=== PATIENT | female | born 1975 | race Caucasian/White ===

== ENCOUNTER 2019-08-28 00:14 | Outpatient (CLI) | payer OTHER, SELFPAY ==
[2019-08-28 16:41] LABS: SARS-CoV-2 RNA PCR Negative
== END 2019-08-28 00:15 | disposition home or self-care (01) ==
LOC: ANHCOVIDDT 00:15
PROVIDERS: Visit Provider Obstetrics & Gynecology
DX: Z01.812 Encounter for preprocedural laboratory examination (principal); Z20.828 Contact with and (suspected) exposure to other viral communicable diseases
CPT/HCPCS: 87635; C9803; U0003

== ENCOUNTER 2019-08-30 02:26 | Day surgery (SDC) | payer OTHER, SELFPAY ==
[2019-08-22 08:41] VITALS: BMI 31.7
--- NOTE | 2019-08-29 15:30 | P.PNAN_ITS ---
Anes - Initial Pre Proc Eval Procedure: Operation Date: 08/30/19 09:30 Proposed Procedures p Laparoscopic Bilateral Tubal Cautery - Darwin Dodd MD Date/Time: 08/29/19 15:30 Surgeon: Darwin Dodd MD Pre Op Diagnosis: Desires Sterilization Patient Data Age: 44 Gender: F Height: 1.63 m Weight: 83.91 kg Allergies Allergy/AdvReac Type Severity Reaction Status Date / Time No Known Allergies Allergy Mild Verified 08/22/19 08:43 Home Medications Medication Instructions Recorded Confirmed Type No Home Medications 08/22/19 08/22/19 History Patient hx anesthesia problems: none Family hx anesthesia problems: none [facility] Past Medical History Medical History (Updated 08/29/19 @ 15:30 by Soulyemane Rothman MD) Obesity Anes - Eval Final PreProcedure Day of Procedure 08/29/19 15:30 Patient weight: obese Heart: regular rate and rhythm Lungs: clear to auscultation and normal air movement Airway: Mallampati scale class II Neurological: alert and oriented Last oral intake: >/= 8 hours ASA classification: II Emergent: no Anesthetic plan: proceed Anesthesia type and monitoring: general ETT Informed Consent: The patient's anesthetic plan and its attendant risks and benefits were discussed with the patient/family/POA. Questions were solicited and answers provided to the satisfaction of the patient/family/POA.
[2019-08-30] VITALS (8 sets, daily range): BP systolic 101–119; BP diastolic 64–79; PULSE 54–64; RESP 12–18; TEMP 36.6–36.9; O2SAT 97–100
[2019-08-30] MEDS: LACTATED RINGERS 1,000 ML 30 ML IV CONT (08:05)
--- NOTE | 2019-08-30 09:00 | WPDHPUPDATE1 ---
History and Physical Update Update Date/Time: 08/30/19 09:00 History and Physical has been reviewed, including an updated exam of the patient. There are NO changes in the patient's condition. Risks, benefits, and alternatives have been discussed and questions answered. Patient agrees to proceed with procedure.
--- NOTE | 2019-08-30 09:57 | SUR.OPER ---
EBL:5cc
--- NOTE | 2019-08-30 10:04 | PM.PROC ---
Procedure Note - Detailed Date of procedure: 08/30/19 Pre-op diagnosis: Desires Sterilization Post-op diagnosis: same Procedure performed: Laparoscopic bilateral tubal ligation Description of procedure: Patient was taken the operating room. She has prepped draped in the dorsal lithotomy position after induction of general anesthesia. A 5 mm abdominal incision was made in left upper quadrant of the abdomen with scalpel. A 5 mm trocars inserted the intra-abdominal cavity under direct visualization of the scope. Pneumoperitoneum was achieved. A 5 mm periumbilical incision was made using a scalpel on the abdominal scan. A 5 mm trocar was inserted the intra-abdominal cavity under visualization of the scope. The fallopian tube was grasped with the bipolar cautery in the ampullary region. It was completely desiccated in a 1.5 cm area of the fallopian tube. This was performed in identical fashion on the contralateral side. The instruments were withdrawn. The pneumoperitoneum was reduced. The trocars were removed. The skin was closed with subcuticular 4 Monocryl. This incisions were covered with Dermabond. The patient tolerated the procedure well. She was taken to recover room in stable condition. Anesthesia: GETA Surgeon: Darwin Dodd MD Estimated blood loss (mL): 10 Drains: No Packing: No Pathology: none sent Complications: No immediate complications Condition: stable Disposition: PACU Findings: Normal female pelvic anatomy.
--- NOTE | 2019-08-30 11:42 | SUR.PHASEII ---
instructions delivered. neishae called.pt without complaints.
== END 2019-08-30 12:10 | disposition home or self-care (01) ==
PROVIDERS: Visit Provider Obstetrics & Gynecology
PROC: (CPT 58671; principal; 2019-08-30 09:30)
DX: Z30.2 Encounter for sterilization (principal); E66.9 Obesity, unspecified; Z68.32 Body mass index [BMI] 32.0-32.9, adult
CPT/HCPCS: 58670; A9270; J0131; J0330; J1100; J2250; J2405; J2704; J3010; J7120

== ENCOUNTER 2020-12-25 07:53 | Outpatient (CLI) | payer OTHER, SELFPAY | END 2020-12-25 07:54 | disposition home or self-care (01) | LOC: ANHAUDIO 07:56 | PROVIDERS: Visit Provider Nurse Practitioner Family | DX: H90.11 Conductive hearing loss, unilateral, right ear, with unrestricted hearing on the contralateral side (principal) | CPT/HCPCS: 92537; 92540; 92546; 92557; 92567 ==

== ENCOUNTER 2021-02-05 06:59 | Outpatient (CLI) | payer OTHER, SELFPAY ==
--- NOTE | ~2021-02-05 | MR_ITS ---
EXAMINATION: MR IAC wo/w con DATE: 02/05/2021 08:14 INDICATION: Asymmetrical hearing loss. TECHNIQUE: Magnetic resonance imaging (MRI) of the brain, brainstem, and internal auditory canals was performed without and with 17 L MultiHance intravenous contrast. Sequences included sagittal and axi al T1-weighted FSE, axial diffusion-weighted FS EPI, axial T2*-weighted GRE, axial T2-weighted FLAIR Propeller, axial T2-weighted Propeller, small sglqk-pa-edwd coronal FIESTA, small qijrt-ec-crah coron al T1-weighted FSE, and small zkwmi-ce-yxvg axial T1-weighted SPGR. Postcontrast sequences included a xial T1-weighted FSE, small sczfa-xq-vmar coronal T1-weighted FSE, and small vqfrd-wh-odbb axial T1-w eighted SPGR. Apparent diffusion coefficient (ADC) maps were created. COMPARISON: None. FINDINGS: There are scattered areas of nonspecific increased T2-weighted signal intensity in the cere bral white matter, which is within normal limits for the patient's age. There is no intracranial hemo rrhage, acute infarction, or abnormal intracranial mass lesion. The ventricles are normal in size. Th e internal auditory canals and inner and middle ears are normal. The mastoid air cells are normal. Th e paranasal sinuses are clear. The orbits are normal. IMPRESSION: 1. Normal aging brain. Reviewed, dictated and finalized at location A. DELIVERY IMPRESSION: 1. Normal aging brain.
[2021-02-05 07:30] LABS: Estimated Glomerular Filt Rate > 60
== END 2021-02-05 07:00 | disposition home or self-care (01) ==
PROVIDERS: PCP Nurse Practitioner Family; Visit Provider Nurse Practitioner Family
DX: H91.90 Unspecified hearing loss, unspecified ear (principal)
CPT/HCPCS: 70553; A9577

== ENCOUNTER 2024-10-26 01:18 | Day surgery (SDC) | payer OTHER, SELFPAY ==
[2024-10-09 15:06] VITALS: BMI 34.0
--- OUTSIDE RECORDS SUMMARY | 2024-10-26 01:23 | XMS_ITS | Encounter Summary ---
Author Organization [facility] Address [address] [place] [address] Phone Care Team Providers Care Pattern Data Operator Name Role Phone Heather Davis MD Primary Care Provide r Encounter Details Date Type Department Care Team (Latest Contact Info) Description 08/29/2024 Results Follow-Up [facility] [address] [place] [address] Luc Mosie MD [address] [facility] [address] [place] [address] Erythrocyte sedimentation rate, CBC with auto differential, Comprehensive metabolic panel, Additional followed-up results: 3 Social History Tobacco Use Types Packs/Day Years Used Date Smoking Tobacco: Never Smokeless Tobacco: Never AUDIT-C Answer Date Recorded Q1: How often do you have a drink containing alc ohol? Monthly or less 03/12/2021 Average Number of Drinks Not on file 021 Q3: How often do you have si x or more drinks on one occasion? Never 03/12/2021 Comments No Sex and Gender Information Value Date Recorded Sex Assigned at Not on file Legal Sex Female 10:52 AM CDT Gender Identity Not on file Sexual Orientation Not on file documented as of this encounter Plan of Treatment Not on file documented as of this encounter Visit Diagnoses Not on filedocumented in this encounter Care Teams Pattern Data Operator Relationship Specialty Start Date End Date Heather Davis MD [address] [facility] [address] [place] [address] PCP - General Internal Medicine 08/28/24 documented as of this encounter
--- OUTSIDE RECORDS SUMMARY | 2024-10-26 01:23 | XMS_ITS | Encounter Summary ---
Author Organization [facility] Address [address] [place] [address] Care Team Providers Care Extension Course Coordinator Name Role Phone Unavailable Primary Care Provider Unavailabl e Reason for Visit * Diagnostic Imaging (Routine) - Closed Specialty Diagnoses / Procedures Referred By Jr rey Referred To Contact Procedures Breast Imaging Screening Outside Reference Zoila Pierson NP [address] [facility] [id number] [place] [address] Phone: tel: fax: Referral ID Status Reason Start Date Expiration Date Visits Re quested Visits Authorized [id number] Closed 09/24/2022 10/24/2023 1 1 Encounter Details Date Type Department Care Team (Late st Contact Info) Description 08/18/2016 Hospital Encounter [facility] [place] [address] Social History Tobacco Use Types Packs/Day Years [...] on file documented as of this encounter Functional Status documented as of this encounter Plan of Treatment Not on file documented as of this encounter Procedures Procedure Name Priority Date/Time Associated Diagnosis Comments BREAST IMAGING MG SCREENING OUTSIDE REFERENCE Routine 08/18/2016 12:00 AM CDT documented in this encounter Results * Breast Imaging Screening Outside Reference (08/18/2016 12:00 AM CDT) Impressions [facility] - 09/24/2022 10:15 AM CDT These images are for Reference purposes only and have not been reviewed by [facility] Radiology. There will be no report generated by a [facility] Radiologist. Narrative RAD_MAMMO[facility] - 09/24/2022 10:15 AM CDT EXAMINATION: Images For Reference Purposes Only us Zoila Pierson NP IMG MAMMO PROCEDURES Final Result [facility] documented in this encounter Visit Diagnoses Not on filedocumented in this encounter
--- OUTSIDE RECORDS SUMMARY | 2024-10-26 01:23 | XMS_ITS | Referral Summary ---
Author Organization [facility] Address [address] [place] [address] Care Team Providers Care Mechanical Technologist Name Role Phone Heather Davis MD Primary Care Provide r Encounters Date Type Department Care Team Description 09/18/2024 Orders Only [facility] [address] [place] [phone] Ramila Alvarez PA 09/15/[address] [phone] Ramila Alvarez PA 09/15/2024 8:30 AM CDT Office Visit [address] [phone] Ramila Alvarez PA Arthralgia, unspecified joint (Primary Dx); Encounter for long-term (current) use of medications; Vitamin D deficiency 09/07/2024 10:30 AM CDT - 09/07/2024 11:59 PM CDT Hospital Encounter [facility] [address] [place] [phone] Discharge Disposition: Discharge to home or self care 08/29/2024 Results Follow-Up [facility] [address] [place] [phone] Luc Moise MD Erythrocyte sedimentation rate, CBC with auto differential, Comprehensive metabolic panel, Additional followed-up results: 3 08/28/2024 10:00 AM CDT Office Visit [facility] [address] [place] [phone] Ramila Alvarez PA Arthralgia, unspecified joint (Primary Dx); Encounter for long-term (current) use of medications; Low vitamin D level from Last 3 Months Allergies No known active allergies Medications ubrogepant (Ubrelvy) 100 mg tablet Ubrelvy 100 mg tablet Take 1 PO at start of migraine, can repeat dose x1 in 2h if no relief, no more than 2 tabs per 24hour period Active hydrocortisone 2.5 % creamIndication s:Rash and other nonspecific skin eruption Mix with ketoconazole cream and apply twice daily as needed to rash on breasts, buttocks 28 g 3 3 Active pimecrolimus (ELIDEL) 1 % creamIndication s:Rash and other nonspecific skin eruption Apply twice daily as needed to rash on face. 30 g 3 3 Active valACYclovir (VALTREX) 1 gram tablet Take 1 tablet (1,000 mg total) by mouth every 12 (twelve) hours Active Victoza 2-Jones 0.6 mg/0.1 mL (18 mg/3 mL) injection Inject 0.6 mg under the skin daily Active fluocinonide (LIDEX) 0.05 % external solutionIndicat ions:Psoriasis, Intertrigo Apply topically 2 (two) times a day as needed for rash 180 mL 11 3 Active triamcinolone (KENALOG) 0.1 % creamIndication s:Psoriasis,Int ertrigo Apply topically 2 (two) times a day as needed for rash Mix with Ketoconazole 454 g 3 Active ketoconazole (NIZORAL) 2 % creamIndication s:Psoriasis,Int ertrigo Mix with triamcinolone 30 [address] (PROTONIX) 40 mg EC tablet Take 1 tablet (40 mg total) by mouth daily 90 tablet 5 026 Active meloxicam (MOBIC) 15 mg tablet Take 1 tablet (15 mg total) by mouth daily 30 tablet 1 5 026 Active ergocalciferol (VITAMIN D) 50,000 unit capsule Take 1 capsule (50,000 Units total) by mouth once a week Active Active Problems Problem Noted Date Diagnosed Date Vitamin D deficiency 09/15/2024 Assessment & Plan (09/15/2024 9:15 AM CDT): Vit d low, her pcp started her on rx vit d 50,000u po qweek. Will f/u with pcp to recheck vit d in 1 month. Arthralgia 08/25/2024 Overview (09/14/2024): US right hand/wrist (09/07/24): 1. No significant joint effusions, power doppler, erosions, or tendinopathy on US examination. 2. 2nd and 3rd PIP joints: Moderate synovial thickening. 3. 1st CMC joint: Mild spurring. Assessment & Plan (09/15/2024 9:13 AM CDT): Low cdai. Minimal hand joint swelling but bilat foot xrays showed enthesitis at achilles and plantar fascia insertion which is suspicious for an early spondyloarthropathy. She denies personal and family history of psoriasis. Recommend we start meloxicam 15 mg po every day, discussed potential se of lft elevation, worsening gerd, elevated creat. She was advised to f/u in 1 month to recheck labs and will also start her on pantoprazole 40mg every day for her hx of gerd. She was advised to let us know if she has any SE. She was informed she was minimally anemic, she states she has heavy menses usually 2-3rd day. Patient voices understanding. She was advised to take a mvit the week of her menses and will recheck labs in 1 month. She did have some mild swelling at distal achilles tendon insertion bilat. Labs 08/2024: Vit d 25 L CRP 13.9H CBC Hgb 11.5L ESR 28H Avise---RF 7.0 (neg <3.5). US right hand/wrist (09/07/24): 1.No significant joint effusions, power doppler, erosions, or tendinopathy on US examination. 2. 2nd and 3rd PIP joints: Moderate synovial thickening. 3. 1st CMC joint: Mild spurring. Assessment & Plan (08/28/2024 12:14 PM CDT): Low cdai. Minimal hand joint swelling. Also has some swelling at distal achilles tendon insertion bilat and hx of + RF. No family hx of autoimmune disease. Will check serologies, rt hand US and xrays and re-evaluate in 2 weeks. 1 h spent with pt between dr moise and myself. F/u in 2 weeks. Encounter for long-term (current) use of medicat ions 08/25/2024 Assessment & Plan (09/15/2024 8:12 AM CDT): Hx of + RF with pcp in 25. Avise panel 08/2024---+ RF 7 (neg <3.5). Assessment & Plan (08/28/2024 12:15 PM CDT): Hx of + RF with pcp in 25. Abnormal magnetic resonance imaging of head 02/26 Migraine without aura and wi thout status migrainosus, not intractable 03/12/2021 Dizziness 10/30/2020 Immunizations Immunization Administration Dates Next Due Influenza, Quadrivalent, Spl it, Preservative Free, Intramuscular 02/26/2021 Social History Tobacco Use Types Packs/Day Years Used Date Smoking Tobacco: Never Smokeless Tobacco: Never Tobacco Cessation:Counseling Given: Not Answered AUDIT-C Answer Date Recorded Q1: How often [...] on file Sexual Orientation Not on file Last Filed Vital Signs Vital Sign Reading Time Taken Comments Blood Pressure 120/86 09/15/2024 8:34 AM CDT Pulse 81 09/15/2024 8:34 AM CDT Temperature 36.6 C (97.8 F) 03/12/2021 9:15 AM PLATEN BUILDER UP Respiratory Rate - - Oxygen Saturation 99% 09/15/2024 8:34 AM CDT Inhaled Oxygen Concentration - - Weight 91.8 kg (202 lb 6.4 oz) 09/15/2024 8:34 A M CDT Height 162.6 cm (5' 4) 09/15/2024 8:34 AM CDT Body Mass Index 34.74 09/15/2024 8:34 AM CDT Plan of Treatment Not on file Medical Devices Implanted Type Area Dumbwaiter Operator Device Identifier Shelf Expiration Date Model / Serial / Lot Bard Peripheral Vascular Ultraclip Bard 17ga 10cm 2 Trigger Permanent Ultrasound [id number] - [id number] Implanted:Qty: 1 on 11/23/2022 at [facility] Left: Breast Bard Peripheral Vascular [id number] / / Procedures Procedure Name Priority Date/Time Associated Diagnosis Comments SCAN - RADIOLOGY/IMAGING 09/18/2024 9:35 AM CDT SCAN - RADIOLOGY/IMAGING 09/07/2024 10:30 AM CDT VITAMIN D 25 HYDROXY Routine 08/28/2024 12:01 PM CDT Arthralgia, unspecified joint Low vitamin D level CRP (ACUTE PHASE) Routine 08/28/2024 12: 01 PM CDT Arthralgia, unspecified joint COMPREHENSIVE METABOLIC PANEL Routine 08/28/2024 12:01 PM CDT Arthralgia, unspecified joint CBC WITH AUTO DIFFERENTIAL Routine 08/28/2024 12:01 PM CDT Arthralgia, unspecified joint ERYTHROCYTE SEDIMENTATION RATE Routine 08/28/2024 12:01 PM CDT Arthralgia, unspecified joint MISCELLANEOUS LAB TEST Routine 9:58 AM CDT Arthralgia, unspecified joint SCREENING MAMMOGRAM Routine 02/24/2017 8 :29 PM PLATEN BUILDER UP from Last 3 Months or Most Recently Relevant to Health Maintenance Results * SCAN - RADIOLOGY/IMAGING (09/18/2024 9:35 AM CDT) Anatomical Region Laterality Modality Other us Ramila Benson inanavya Result * SCAN - RADIOLOGY/IMAGING (09/07/2024 10:30 AM CDT) Anatomical Region Laterality Modality Ultrasound us Provider Scanning Final Result * (ABNORMAL) CBC with auto differential (08/28/2024 12:01 PM CDT) WBC 7.1 3.8 - 10.8 Thousand/u L [facility] RBC, POC 4.76 3.80 - 5.10 Million/uL [facility] Hgb 11.5(L) 11.7 - 15.5 g/dL [facility] Hct 38.0 35.0 - 45.0 % [facility] MCV 79.8(L) 80.0 - 100.0 fL [facility] MCH 24.2(L) 27.0 - 33.0 pg [facility] MCHC 30.3(L) 32.0 - 36.0 g/dL [facility] Comment: For adults, a slight decrease in the calculated MCHC value (in the range of 30 to 32 g/dL) is most likely not clinically significant; however, it should be interpreted with caution in correlation with other red cell parameters and the patient's clinical condition. Rdw 14.3 11.0 - 15.0 % [facility] Platelets 297 140 - 400 Thousand/u L [facility] MPV 10.4 7.5 - 12.5 fL [facility] Neutrophils, abs 4,849 1,500 - 7,800 cells/uL [facility] Lymphocytes, abs 1,654 850 - 3,900 cells/uL [facility] Monocyte abs 483 200 - 950 cells/uL [facility] Eosinophils, abs 71 15 - 500 cells/uL [facility] Basophils, abs 43 0 - 200 cells/uL [facility] Neutrophils 68.3 % [facility] Lymphocyte pct 23.3 % [facility] Monocytes 6.8 % [facility] Eosinophils 1.0 % [facility] Basophils 0.6 % [facility] Blood 08/28/2024 12:0 1 PM CDT 08/28/2024 12:02 PM CDT Luc Moise MD LAB BLOOD ORDERABLES Fin al Result Performing Organization Address City/[facility] Co de Phone Number [facility] [address] [place] [address] * (ABNORMAL) Vitamin D 25 hydroxy (08/28/2024 12:01 PM CDT) Vitamin D 25-OH 25(L) 30 - 100 ng/mL [facility] Comment: Vitamin D Status 25-OH Vitamin D: Deficiency: <20 ng/mL Insufficiency: 20 - 29 ng/mL Optimal: > or = 30 ng/mL For 25-OH Vitamin D testing on patients on D2-supplementation and patients for whom quantitation of D2 and D3 fractions is required, the QuestAssureD(TM) 25-OH VIT D, (D2,D3), LC/MS/MS is recommended: order code 69646 (patients >2yrs). See Note 1 Note 1 For additional information, please refer to http://education.Pro Stream +/faq/MCT084 (This link is being provided for informational/ educational purposes only.) Blood 08/28/2024 12:0 1 PM CDT 08/28/2024 12:02 PM CDT Luc Moise MD LAB BLOOD ORDERABLES Fin al Result Performing Organization Address [facility]/ZIP Co de Phone Number [facility] [address] [place] [address] * (ABNORMAL) Erythrocyte sedimentation rate (08/28/2024 12:01 PM CDT) Erythrocyte sedimentation rate 28(H) < OR = 20 mm/h [facility] Blood 08/28/2024 12:0 1 PM CDT 08/28/2024 12:02 PM CDT Luc Moise MD LAB BLOOD ORDERABLES Fin al Result Performing Organization Address [facility] Co de Phone Number [facility] [address] [place] [address] * (ABNORMAL) CRP (acute phase) (08/28/2024 12:01 PM CDT) C-RP 13.9(H) <8.0 mg/L [facility] Blood 08/28/2024 12:0 1 PM CDT 08/28/2024 12:02 PM CDT Luc Moise MD LAB BLOOD ORDERABLES Fin al Result Performing Organization Address [facility] de Phone Number [facility] [address] [place] [address] * Comprehensive metabolic panel (08/28/2024 12:01 PM CDT) Pathologist [facility] Glucose 92 65 - 99 mg/dL [facility] Comment: Fasting reference interval BUN 11 7 - 25 mg/dL [facility] Creatinine 0.66 0.50 - 0.99 mg/dL [facility] eGFR 108 > OR = 60 mL/min/1.7 3m2 [facility] BUN/creat ratio SEE NOTE: 6 - 22 (calc) [facility] Comment: Not Reported: BUN and Creatinine are within reference range. Sodium 137 135 - 146 mmol/L [facility] Potassium, pl 4.3 3.5 - 5.3 mmol/L [facility] Chloride 104 98 - 110 mmol/L [facility] CO2 24 20 - 32 mmol/L [facility] Calcium 9.3 8.6 - 10.2 mg/dL [facility] Protein, sr 7.5 6.1 - 8.1 g/dL [facility] Albumin 4.3 3.6 - 5.1 g/dL [facility] GLOBULIN 3.2 1.9 - 3.7 g/dL (calc) [facility] Alb/glob ratio 1.3 1.0 - 2.5 (calc) [facility] Bilirubin, total 0.4 0.2 - 1.2 mg/dL [facility] Alk phos 67 31 - 125 U/L [facility] AST 17 10 - 35 U/L [facility] ALT (SGPT) 12 6 - 29 U/L [facility] Blood 08/28/2024 12:0 1 PM CDT 08/28/2024 12:02 PM CDT Luc Moise MD LAB BLOOD ORDERABLES Fin al Result Performing Organization Address City/[facility]/ZIP Co de Phone Number [facility] [address] [place] [address] * avise with anti carp and sle monitor - Miscellaneous Test (08/28/2024 9:58 AM CDT) Miscellaneous Luc Moise MD LAB BLOOD ORDERABLES Fin al Result EXTERNAL LAB * Screening Mammogram (02/24/2017 8:29 PM PLATEN BUILDER UP) Anatomical Region Laterality Modality Breast N/A Mammography 02/24/2017 8:29 PM PLATEN BUILDER UP Narrative 02/24/2017 11:15 PM PLATEN BUILDER UP CHRIS MAC M.D. CHASE NAM M.D. FINAL REPORT The radiology attending physician has personally reviewed this study, and has reviewed and/or edited this written report and agrees with it. ACC# Date Time Exam [id number] Feb 24, 2017 14:29:00 [facility] [place] [address] Dia Mamm, inc CAD, unilat L Technologist(s): Yuridia Crandall; ; [id number] Feb 24, 2017 14:29:00 [facility] [place] [address] DigBreast Jg uni L Technologist(s): Yuridia Crandall; ; [id number] Feb 24, 2017 14:17:00 [facility] [place] [address] Axillary Breast Ultrasound R [id number] Feb 24, 2017 14:17:00 [facility] [place] [address] Breast US unilateral, ltd L EXAMINATION: 1. RIGHT AXILLARY SONOGRAM; 2. LEFT BREAST SONOGRAM; 3. UNILATERAL LEFT DIGITAL DIAGNOSTIC MAMMOGRAM INCLUDING CAD AND DIGITAL BREAST TOMOSYNTHESIS HISTORY: 42-year-old woman presents for reevaluation of a morphologically abnormal RIGHT axillary lymph node, as well as a 6 mm circumscribed hypoechoic mass at the 12 o'clock position of the LEFT breast. The patient underwent ultrasound-guided fine-needle aspiration of the RIGHT axillary lymph node on 09/17/2016 with pathology demonstrating lymphoid component, negative for metastatic carcinoma. Short-term follow-up sonogram of the LEFT breast was recommended in 3 months to confirm resolution and/or stability. COMPARISON: Prior mammograms dated 09/16/2016, 09/03/2016, and 08/18/2016, prior ultrasound 09/16/2016. TECHNIQUE: Full field digital mammographic views of BOTH breasts were performed, including computer aided detection (CAD) and digital breast tomosynthesis (DBT). Directed ultrasound evaluation of right axilla and left breast was performed. BREAST PARENCHYMAL COMPOSITION: The breasts are heterogenously dense, which may obscure small masses. SONOGRAM FINDINGS: Directed ultrasound of the RIGHT axilla was performed. There is redemonstration of a morphologically abnormal right axillary lymph node which contains a central biopsy clip from prior fine-needle aspiration. The lymph node measures 1.6 x 1.1 cm compared with 1.4 x 1.1 cm on exam of 09/16/2016, when measured similarly, and again demonstrates cortical thickening with hilar effacement. Directed ultrasound was performed of the LEFT breast at 12:00, 6 cm from the nipple, which demonstrates a stable circumscribed hypoechoic mass likely representing a cluster of microcysts measuring up to 7 mm, previously measuring up to 7 mm. MAMMOGRAM FINDINGS: Unilateral LEFT breast mammogram was performed following ultrasound guided placement of a triangular skin marker over the sonographic cluster of cysts at 12:00, 6 cm from the nipple. There is a circumscribed 6 mm low-density mass in the central left breast at 12 o'clock position on the best visualized on CC DBT slice 51/80 corresponding with the probable sonographic cluster of cysts. Approximately 3 cm medial, there is unchanged summation of dense fibroglandular tissue. IMPRESSION: 1. Unchanged probably benign hypoechoic mass in the LEFT breast at 12 o'clock favored to represent a cluster of cysts, for which short-term follow-up in 6 months is recommended 2. No significant change in size of the previously biopsied benign RIGHT axillary lymph node. Continued clinical follow-up is recommended, with further management decision based on clinical assessment. OVERALL FINAL ASSESSMENT: BI-RADS Category 3: Probably Benign. Recommend follow-up diagnostic breast imaging in 6 months of the LEFT breast. Continued clinical follow-up of the RIGHT axilla is recommended. Any further evaluation at this time, including RIGHT axillary lymph node surgical excision, should be determined by clinical assessment. Electronically signed by: Chris Mac M.D. Requested By: Tanesha Lockett MD, PHD Dictated By: CHASE NAM M.D. on Feb 24 2017 4:56P This document has been electronically signed by: CHRIS MAC M.D. on Feb 24 2017 5:13P Catarina LITTLEJOHN M.D. FINAL REPORT The radiology attending physician has personally reviewed this study, and has reviewed and/or edited this written report and agrees with it. Attending: TANESHA LOCKETT Requesting: Tanesha Lockett Requesting Fax: Attending Fax: Attending ID: [id number] Requesting ID: [id number] Report To 1 ID: [id number] Report To 1 Name: , Report To 1 FAX: NextGen Order #: Procedure Note Miscellaneous, Not In File - 02/24/2017 Catarina LITTLEJOHN M.D. FINAL REPORT The radiology attending physician has personally reviewed this study, and has reviewed and/or edited this written report and agrees with it. ACC# Date Time Exam [id number] Feb 24, 2017 14:29:00 [facility] [place] [address] Diag Mamm, inc CAD, unilat L Technologist(s): Yuridia Crandall; ; [id number] Feb 24, 2017 14:29:00 [facility] [place] [address] DigBreast Jg uni L Technologist(s): Yuridia Crandall; ; [id number] Feb 24, 2017 14:17:00 [facility] [place] [address] Axillary Breast Ultrasound R [id number] Feb 24, 2017 14:17:00 [facility] [place] [address] Breast US unilateral, ltd L EXAMINATION: 1. RIGHT AXILLARY SONOGRAM; 2. LEFT BREAST SONOGRAM; 3. UNILATERAL LEFT DIGITAL DIAGNOSTIC MAMMOGRAM INCLUDING CAD AND DIGITAL BREAST TOMOSYNTHESIS HISTORY: 42-year-old woman presents for reevaluation of a morphologically abnormal RIGHT axillary lymph node, as well as a 6 mm circumscribed hypoechoic mass at the 12 o'clock position of the LEFT breast. The patient underwent ultrasound-guided fine-needle aspiration of the RIGHT axillary lymph node on 09/17/2016 with pathology demonstrating lymphoid component, negative for metastatic carcinoma. Short-term follow-up sonogram of the LEFT breast was recommended in 3 months to confirm resolution and/or stability. COMPARISON: Prior mammograms dated 09/16/2016, 09/03/2016, and 08/18/2016, prior ultrasound 09/16/2016. TECHNIQUE: Full field digital mammographic views of BOTH breasts were performed, including computer aided detection (CAD) and digital breast tomosynthesis (DBT). Directed ultrasound evaluation of right axilla and left breast was performed. BREAST PARENCHYMAL COMPOSITION: The breasts are heterogenously dense, which may obscure small masses. SONOGRAM FINDINGS: Directed ultrasound of the RIGHT axilla was performed. There is redemonstration of a morphologically abnormal right axillary lymph node which contains a central biopsy clip from prior fine-needle aspiration. The lymph node measures 1.6 x 1.1 cm compared with 1.4 x 1.1 cm on exam of 09/16/2016, when measured similarly, and again demonstrates cortical thickening with hilar effacement. Directed ultrasound was performed of the LEFT breast at 12:00, 6 cm from the nipple, which demonstrates a stable circumscribed hypoechoic mass likely representing a cluster of microcysts measuring up to 7 mm, previously measuring up to 7 mm. MAMMOGRAM FINDINGS: Unilateral LEFT breast mammogram was performed following ultrasound guided placement of a triangular skin marker over the sonographic cluster of cysts at 12:00, 6 cm from the nipple. There is a circumscribed 6 mm low-density mass in the central left breast at 12 o'clock position on the best visualized on CC DBT slice 51/80 corresponding with the probable sonographic cluster of cysts. Approximately 3 cm medial, there is unchanged summation of dense fibroglandular tissue. IMPRESSION: 1. Unchanged probably benign hypoechoic mass in the LEFT breast at 12 o'clock favored to represent a cluster of cysts, for which short-term follow-up in 6 months is recommended 2. No significant change in size of the previously biopsied benign RIGHT axillary lymph node. Continued clinical follow-up is recommended, with further management decision based on clinical assessment. OVERALL FINAL ASSESSMENT: BI-RADS Category 3: Probably Benign. Recommend follow-up diagnostic breast imaging in 6 months of the LEFT breast. Continued clinical follow-up of the RIGHT axilla is recommended. Any further evaluation at this time, including RIGHT axillary lymph node surgical excision, should be determined by clinical assessment. Electronically signed by: Chris Mac M.D. Requested By: Tanesha Lockett MD, PHD Dictated By: CHASE NAM M.D. on Feb 24 2017 4:56P This document has been electronically signed by: CHRIS MAC M.D. on Feb 24 2017 5:13P Catarina LITTLEJOHN M.D. FINAL REPORT The radiology attending physician has personally reviewed this study, and has reviewed and/or edited this written report and agrees with it. Attending: TANESHA LOCKETT Requesting: Tanesha Lockett Requesting Fax: Attending Fax: Attending ID: [id number] Requesting ID: [id number] Report To 1 ID: [id number] Report To 1 Name: , Report To 1 FAX: NextGen Order #: Result [facility] Tanesha Lockett MD PhD IMG MAMMO PROCEDURES Final Result from Last 3 Months or Most Recently Relevant to Health Maintenance Insurance [facility] [employer] HMO/POS [employer] PPO Care Teams Mechanical Technologist Relationship Specialty Start Date End Date Heather Davis MD [address] [place] [address] PCP - General Internal Medicine 08/28/24
--- OUTSIDE RECORDS SUMMARY | 2024-10-26 01:23 | XMS_ITS | Clinical Summary ---
Author Organization [facility] Address [address] [place] [address] Care Team Providers Care Shipping Checker Name Role Phone Carlee Ruiz MD Primary Care Provider Source Comments [facility],non-owned Affiliates and Associated Physician Practices is amultiple site organization consisting of ambulatory clinics and hospital sitesin [place], [place], [place] and [place]. This disclosure is being madepursuant to the Care Everywhere program and may not contain all information available regarding this patient. Last updated 17.[facility] Active Problems Problem Noted Date Diagnosed Date Unspecified disorder of synovium and tendon, rig ht shoulder 12/27/2015 Social History Tobacco Use Types Packs/Day Years Used Date Smoking Tobacco: Never Alcohol Use Standard Drinks/Week Comments No 0 (1 standard drink = 0.6 oz pur e alcohol) Comments Unknown Sex and Gender Information Value Date Recorded Sex Assigned at Not on file Legal Sex Female 5:51 PM EDI COORDINATOR Gender Identity Not on file Sexual Orientation Not on file Last Filed Vital Signs Vital Sign Reading Time Taken Comments Blood Pressure - - Pulse - - Temperature - - Respiratory Rate - - Oxygen Saturation - - Inhaled Oxygen Concentration - - Weight 75.8 kg (167 lb) 12/27/2015 9:15 AM CDT Height 162.6 cm (5' 4) 12/27/2015 9:15 AM CDT Body Mass Index 28.67 12/27/2015 9:15 AM CDT Plan of Treatment Health Maintenance Due Date Last Done Comments COLOGUARD (AGES 45-75) - COL ON CA SCREENING 1975 COLON MONITORING 1976 COLONOSCOPY - COLON CA SCREENING 1976 CT COLONOGRAPHY - COLON CA SCREENING 1975 Colorectal Cancer Screening 1975 FIT - COLON CA SCREENING 1976 FLEX SIG - COLON CA SCREENING 1976 LIPID TESTING 1975 MAMMOGRAM 1975 HIV SCREENING 02/13/1991 HEPATITIS C SCREENING 02/09/1994 DTAP/TDAP/TD VACCINES (1 - Tdap) 02/13/1995 HEPATITIS B VACCINE (1 of 3 - 19+ 3-dose series) 02/13/1995 COVID-19 VACCINE (1 - 2023-2 5 season) 2023 DEPRESSION SCREENING 03/29/2024 INFLUENZA VACCINE (#1) 2024 ZOSTER VACCINE (1 of 2) 02/13/2026 HIB VACCINE Aged Out No longer eligi ble based on patient's age to complete this topic HPV VACCINE Aged Out No longer eligi ble based on patient's age to complete this topic MENINGOCOCCAL (Group B) VACC INE SHARED DECISION-MAKING Aged Out No longer eligibl e based on patient's age to complete this topic MENINGOCOCCAL GROUPS A/C/Y/W VACCINE Aged Out No longer eligible b ased on patient's age to complete this topic PNEUMOCOCCAL VACCINE Aged Out No long er eligible based on patient's age to complete this topic Care Teams Shipping Checker Relationship Specialty Start Date End Date Carlee Ruiz MD [address] [place] [phone] PCP - General 11/20/15
--- OUTSIDE RECORDS SUMMARY | 2024-10-26 01:23 | XMS_ITS | Clinical Summary ---
Author Organization [facility] Address [address] [place] [address] Care Team Providers Care Lead Material Handler Name Role Phone Heather Davis MD Primary Care Provide r Allergies No known active allergies Medications ubrogepant [...] for rash Mix with Ketoconazole 454 g 11 3 Active ketoconazole (NIZORAL) 2 % creamIndication s:Psoriasis,Int ertrigo Mix with triamcinolone 30 g [address] (PROTONIX) 40 mg [...] status migrainosus, not intractable 03/12/2021 Dizziness 10/30/2020 Encounters Date Type Department Care Team Description 09/18/2024 Orders Only [facility] [address] [place] [phone] Ramila Alvarez PA 09/15/2024 8:30 AM CDT Office Visit [facility] [address] [place] [phone] Ramila Alvarez PA Arthralgia, unspecified joint (Primary Dx); Encounter for long-term (current) use of medications; Vitamin D deficiency 09/15/2024 Telephone [facility] [address] [place] [phone] Ramila Alvarez PA 09/07/2024 10:30 AM CDT - 09/07/2024 11:59 PM CDT Hospital Encounter [facility] [address] [place] [phone] Discharge Disposition: Discharge to home or self care 08/29/2024 Results Follow-Up [facility] [address] [place] [phone] Luc Moise MD Erythrocyte sedimentation rate, CBC with auto differential, Comprehensive metabolic panel, Additional followed-up results: 3 08/28/2024 10:00 AM CDT Office Visit [facility] [address] [place] [phone] Ramila Alvarez PA Arthralgia, unspecified joint (Primary Dx); Encounter for long-term (current) use of medications; Low vitamin D level from Last 3 Months Immunizations Immunization Administration Dates Next Due Influenza, Quadrivalent, Spl it, Preservative Free, Intramuscular 02/26/2021 Surgical History Surgery Date Site/Laterality Comments TONSILLECTOMY WISDOM TOOTH EXTRACTION BREAST BIOPSY 11/23/2022 Left Medical History Medical History Date Comments Generalized headaches Dizziness Family History Medical History Relation Name Comments Stroke Father Migraines Mother Breast cancer Mother's Sister Colon cancer Mother's Sister Relation Name Status Comments Father Alive Mother Alive Mother's Sister Social History Tobacco Use Types Packs/Day Years [...] on file Sexual Orientation Not on file Obstetrics History Last Filed Vital Signs Vital Sign Reading Time Taken Comments Blood Pressure 120/86 09/15/2024 8:34 AM CDT Pulse 81 09/15/2024 8:34 AM CDT Temperature 36.6 C (97.8 F) 03/12/2021 9:15 AM 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 Respiratory Rate - - Oxygen Saturation 99% 09/15/2024 8:34 AM CDT Inhaled Oxygen Concentration - - Weight 91.8 kg (202 lb 6.4 oz) 09/15/2024 8:34 A M CDT Height 162.6 cm (5' 4) 09/15/2024 8:34 AM CDT Body Mass Index 34.74 09/15/2024 8:34 AM CDT Plan of Treatment Health Maintenance Due Date Last Done Comments Cervical Cancer Screening 1975 Colon Cancer Screening-Colonoscopy 1976 Depression Screening 1976 Hepatitis C Screening 1976 DTaP/Tdap/Td Vaccine (1 - Tdap) 02/13/1987 Hepatitis B Screening 02/13/1994 Regular Well Visit/Exam 18-64 02/13/1994 Breast Cancer Screening-Mammogram 02/24/2018 02/24/2017, 09/16/2016 Covid-19 Vaccine ( season) 2023 11/14/2020, 11/14/2020, 10/23/2020, Additional history exists Influenza Vaccine (#1) 2024 , 03/04/2022, 02/26/2021 Pneumococcal vaccine <65 Aged Out No longer eligible based on patient's age to complete this topic Medical Devices Implanted Type Area Film Recordist Device Identifier Shelf Expiration Date Model / Serial / Lot Bard Peripheral Vascular Ultraclip Bard 17ga 10cm 2 Trigger Permanent Ultrasound [id number] - [id number] Implanted:Qty: 1 on 11/23/2022 at [facility] Left: Breast [employer] Per[employer] V[employer] [id number] / / Procedures Procedure Name Priority Date/Time [...] SCREENING MAMMOGRAM Routine 02/24/2017 8 :29 PM 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 from Last 3 Months or Most Recently Relevant to Health Maintenance Results * SCAN - RADIOLOGY/IMAGING (09/18/2024 9:35 AM CDT) Anatomical Region Laterality Modality Other Ramila chatterjee Result * SCAN - RADIOLOGY/IMAGING (09/07/2024 10:30 [...] MD LAB BLOOD ORDERABLES Fin al Result [facility] [address] [phone] * (ABNORMAL) Vitamin D 25 hydroxy (08/28/2024 12:01 PM CDT) Pathologist [facility] Vitamin D 25-OH 25(L) 30 - 100 [...] D, (D2,D3), LC/MS/MS is recommended: order code 22716 (patients >2yrs). See Note 1 Note 1 For additional information, please refer to [email or web address] (This link is being provided for informational/ educational purposes only.) Blood 08/28/2024 12:0 1 PM CDT 08/28/2024 12:02 PM CDT Luc Moise MD LAB BLOOD ORDERABLES Fin al Result Performing Organization Address [facility] de Phone Number [facility] [address] [place] [address] * (ABNORMAL) Erythrocyte sedimentation rate (08/28/2024 12:01 PM CDT) Erythrocyte sedimentation rate 28(H) < OR = 20 mm/h [facility] Blood 08/28/2024 12:0 1 PM CDT 08/28/2024 12:02 PM CDT Luc Moise MD LAB BLOOD ORDERABLES Fin al Result Performing Organization Address [place] de Phone Number [facility] [address] [place] [address] * (ABNORMAL) CRP (acute phase) (08/28/2024 12:01 PM CDT) C-RP 13.9(H) <8.0 mg/L [facility] Blood 08/28/2024 12:0 1 PM CDT 08/28/2024 12:02 PM CDT Luc Moise MD LAB BLOOD ORDERABLES Fin al Result Performing Organization Address [facility] Co de Phone Number [facility] [address] [facility] [place] [phone] * Comprehensive metabolic panel (08/28/2024 12:01 PM CDT) Glucose 92 65 - 99 mg/dL [facility] [...] 1 PM CDT 08/28/2024 12:02 PM CDT us Luc Moise MD LAB BLOOD ORDERABLES Fin al Result [facility] [address] [place] [address] * avise with anti carp and sle monitor - Miscellaneous Test (08/28/2024 9:58 AM CDT) Miscellaneous Luc Moise MD LAB BLOOD ORDERABLES Fin al Result EXTERNAL LAB * Screening Mammogram (02/24/2017 8:29 PM 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) Anatomical Region Laterality Modality Breast N/A Mammography 02/24/2017 8:29 PM 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 Narrative 02/24/2017 11:15 PM 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 CHRIS MAC M.D. CHASE NAM M.D. FINAL REPORT The radiology attending physician has personally reviewed this study, and has reviewed and/or edited this written report and agrees with it. ACC# Date Time Exam [id number] Feb 24, 2017 14:29:00 [facility] [address] Diag Mamm, inc CAD, unilat L Technologist(s): Yuridia Crandall; ; [id number] Feb 24, 2017 14:29:00 [facility] 95145 DigBreast Jg uni L Technologist(s): Yuridia Crandall; ; [id number] Feb 24, 2017 14:17:00 [facility] 88978 Axillary Breast Ultrasound R [id number] Feb 24, 2017 14:17:00 [facility] 09237 Breast US unilateral, ltd L EXAMINATION: 1. [...] Lockett Requesting Fax: Attending Fax: Attending ID: [id number] Requesting ID: [id number] Report To 1 ID: [id number] Report To 1 Name: , Report To 1 FAX: NextGen Order #: Procedure Note Miscellaneous, Not In File - 02/24/2017 Catarina LITTLEJOHN M.D. FINAL REPORT The radiology attending physician has personally reviewed this study, and has reviewed and/or edited this written report and agrees with it. ACC# Date Time Exam [id number] Feb 24, 2017 14:29:00 [facility] [address]696 Diag Mamm, inc CAD, unilat L Technologist(s): Yuridia Crandall; ; [id number] Feb 24, 2017 14:29:00 [facility] [address]958 DigBreast Jg uni L Technologist(s): Yuridia Crandall; ; [id number] Feb 24, 2017 14:17:00 [facility] 52749 Axillary Breast Ultrasound R [id number] Feb 24, 2017 14:17:00 [facility] 93891 Breast US unilateral, ltd L EXAMINATION: 1. [...] MAC M.D. on Feb 24 2017 5:13P CHRIS MAC M.D. CHASE NAM M.D. FINAL REPORT The radiology attending physician has personally reviewed this study, and has reviewed and/or edited this written report and agrees with it. Attending: TANESHA LOCKETT Requesting: Tanesha Lockett Requesting Fax: Attending Fax: Attending ID: [id number] Requesting ID: [id number] Report To 1 ID: [id number] Report To 1 Name: , Report To 1 FAX: NextGen Order #: Result [facility] Tanesha Lockett MD PhD IMG MAMMO PROCEDURES Final Result from Last 3 Months or Most Recently Relevant to Health Maintenance Insurance [facility] HMO/POS [employer] [place] PPO Care Teams Lead Material Handler Relationship Specialty Start Date End Date Heather Davis MD [address] [place] [address] PCP - General Internal Medicine 08/28/24
--- OUTSIDE RECORDS SUMMARY | 2024-10-26 01:23 | XMS_ITS | Encounter Summary ---
Author Organization [facility] Address [address] [place] [address] Care Team Providers Care Clinical Rehab Liaison Name Role Phone Unavailable Primary Care Provider Unavailabl e Reason for Visit * Diagnostic Imaging (Routine) - Closed Specialty Diagnoses / Procedures Referred By Jr rey Referred To Contact Procedures Breast Imaging Diagnostic Outside Reference Zoila Pierson NP [address] [facility] [phone] [place] [address] Phone: tel: fax: Referral ID Status Reason Start Date Expiration Date Visits Re quested Visits Authorized [id number] Closed 09/24/2022 10/24/2023 1 1 Encounter Details Date Type Department Care Team (Late st Contact Info) Description 09/03/2016 Hospital Encounter [facility] [address] [place] [address] Social History Tobacco Use Types Packs/Day Years [...] Date/Time Associated Diagnosis Comments BREAST IMAGING MG DIAGNOSTIC OUTSIDE REFERENCE Routine 09/03/2016 12:00 AM CDT documented in this encounter Results * Breast Imaging Diagnostic Outside Reference (09/03/2016 12:00 AM CDT) Impressions RAD_MAMMO_[facility] - 09/24/2022 10:15 AM CDT These images are for Reference purposes only and have not been reviewed by [facility]iology. There will be no report generated by a [facility] Radiologist. Narrative RAD_MAMMO_[facility] - 09/24/2022 10:15 AM CDT EXAMINATION: Images For Reference Purposes Only us Zoila Pierson NP IMG MAMMO PROCEDURES Final Result RAD_MAMMO_[facility] documented in this encounter Visit Diagnoses Not on filedocumented in this encounter
--- NOTE | 2024-10-26 09:03 | P.PNAN_ITS ---
Anes - Initial Pre Proc Eval Procedure: Operation Date: 10/26/24 10:00 Proposed Procedures p Screening Colonoscopy - Everett Bales MD Date/Time: 10/26/24 09:03 Surgeon: Everett aBles MD Pre Op Diagnosis: Screening Patient Data Age: 49 Gender: F Height: 1.63 m Weight: 90 kg Allergies Allergy/AdvReac Type Severity Reaction Status Date / Time No Known Allergies Allergy Mild Verified 10/26/24 08:56 Home Medications ?Medication ?Instructions ?Recorded ?Confirmed ?Type meloxicam 15 mg tablet 15 mg PO DAILY 10/09/24 10/09/24 History nystatin-triamcinolone 100,000 1 applic topical DAILY 10/09/24 10/09/24 History unit/g-0.1 % topical cream pantoprazole 40 mg tablet,delayed 40 mg PO QAM 10/09/24 10/09/24 History release Patient hx anesthesia problems: none Family hx anesthesia problems: none Results Review: All pre-operative results and documents have been reviewed as part of the pre- operative evaluation. PMFSH Past Medical History Medical History Obesity Social History Social History Smoking status: Never smoker Alcohol intake: current Drinks per week: 4 Alcohol use details: Wine or liquor Substance use: never Substance use type: does not use Living arrangements: with family Spiritual care concerns: No Anes - Eval Final PreProcedure Day of Procedure 10/26/24 09:03 Patient weight: obese Heart: regular rate and rhythm Lungs: clear to auscultation Airway: Mallampati scale class III Neurological: alert and oriented Last oral intake: >/= 8 hours ASA classification: II Emergent: no Anesthetic plan: proceed Anesthesia type and monitoring: general GIVS and standard monitoring Results Review: All pre-operative results and documents have been reviewed as part of the pre- operative evaluation. Informed Consent: The patient's anesthetic plan and its attendant risks and benefits were discussed with the patient/family/POA. Questions were solicited and answers provided to the satisfaction of the patient/family/POA.
[2024-10-26 09:04] VITALS: BP 132/84; PULSE 81; RESP 18; TEMP 36.5; O2SAT 100
[2024-10-26 09:05] LABS: BEDSIDEPREGUCG Negative (Negative)
[2024-10-26] MEDS: LACTATED RINGERS 1,000 ML 150 ML IV CONT (09:12)
--- NOTE | 2024-10-26 09:32 | PM.HPGS ---
History of Present Illness History of Present Illness Consent: Risks, benefits, and alternatives have been discussed and questions answered. Patient agrees to proceed with procedure. Chief complaint: Screening Narrative: Noemy Warren is a 49 year old female here for first screening colonoscopy Review of Systems Review of Systems: All systems reviewed & are unremarkable except as noted in HPI and below PMFSH Past Medical History Medical History (Updated 10/26/24 @ 09:38 by Everett Bales MD) Colon cancer screening Obesity Social History Social History Smoking status: Never smoker Alcohol intake: current Drinks per week: 4 Alcohol use details: Wine or liquor Substance use: never Substance use type: does not use Living arrangements: with family Spiritual care concerns: No Meds Home Medications and Allergies Home Medications ?Medication ?Instructions ?Recorded ?Confirmed ?Type meloxicam 15 mg tablet 15 mg PO DAILY 10/09/24 10/09/24 History nystatin-triamcinolone 100,000 1 applic topical DAILY 10/09/24 10/09/24 History unit/g-0.1 % topical cream pantoprazole 40 mg tablet,delayed 40 mg PO QAM 10/09/24 10/09/24 History release Allergies Allergy/AdvReac Type Severity Reaction Status Date / Time No Known Allergies Allergy Mild Verified 10/26/24 08:56 Vital Signs Vital Signs - 24 hr 10/26/24 09:04 Temperature 97.7 F Pulse Rate 81 Respiratory Rate 18 Blood Pressure 132/84 Pulse Oximetry 100 Oxygen Delivery Room Air Exam Const: General: comfortable and no acute distress HENMT: Face/Nose/Sinus: Normal nares present Eyes: General: appearance normal, both eyes and all related structures Neck: Neck: no JVD Resp: Auscultation: clear to auscultation bilaterally Cardio: Rate: regular rate Rhythm: regular rhythm GI: Inspection: non-distended GI Palp: Yes Soft to palpation Skin: General skin exam: normal color Neuro: Speech: normal speech Extrem: General: normal to inspection Psych: Mental Status: mental status grossly normal Assessment and Plan Assessment and plan (1) Colon cancer screening: Code(s): Z12.11 - Encounter for screening for malignant neoplasm of colon Status: Acute Assessment and Plan: colonoscopy
--- NOTE | 2024-10-26 09:47 | S_PTH ---
PATIENT: Noemy Warren LOC: [facility]#:[id number] AGE/SX: 49/F ROOM: RE10/26/[address]: Everett Bales MD : 1975 BED: DIS: 10/26/2024 SPEC #: [id number] RECD: 10/26/24 10:58 STATUS: JUDY RECricket #: [id number] BRANDON: 10/26/24 09:[address]: Everett Baels DEPT: [facility] Surgical RECD BY: Peggy Del Toro ENTERED: 10/26/24 10:58 SP TYPE: Surgical OTHR DR: Tereza DavisMD Tissues: A - Colon Polypectomy Procedures: Hematoxylin and Eosin Stain Gross and Microscopic Level 4
[2024-10-26 09:51] VITALS: BP 104/67; PULSE 75; RESP 24; O2SAT 98
[2024-10-26 10:01] VITALS: BP 106/69; PULSE 71; RESP 18; O2SAT 99
[2024-10-26 10:11] VITALS: BP 116/79; PULSE 72; RESP 19; O2SAT 99
== END 2024-10-26 10:19 | disposition home or self-care (01) ==
PROVIDERS: Anesthesiology; PCP Internal Medicine; Referring Provider Internal Medicine; Visit Provider Internal Medicine Gastroenterology
PROC: 0DJD8ZZ Inspection of Lower Intestinal Tract, Via Natural or Artificial Opening Endoscopic (ICD-10-PCS; CPT 45378; principal; 2024-10-26 10:00)
DX: Z12.11 Encounter for screening for malignant neoplasm of colon (principal); D12.5 Benign neoplasm of sigmoid colon; K64.8 Other hemorrhoids; E66.9 Obesity, unspecified; Z68.33 Body mass index [BMI] 33.0-33.9, adult
CPT/HCPCS: 45385; 88305; J2003; J2704; J7120